=== PATIENT | female | born 1955 | race Caucasian/White ===

== ENCOUNTER 2020-09-10 11:47 | Outpatient (CLI) | payer MEDICARE, SELFPAY ==
--- NOTE | 2020-09-10 11:52 | ECG_ITS ---
Measurements Intervals Many Rate: 50 P: 57 AK: 136 QRS: 51 QRSD: 97 T: 61 QT: 373 QTc: 342 Interpretive Statements SINUS BRADYCARDIA LOW QRS VOLTAGE IN LIMB LEADS BORDERLINE R WAVE PROGRESSION, ANTERIOR LEADS BORDERLINE ECG Electronically Signed On 09-10-2020 12:17:39 CDT by Lul Rey D.O.
[2020-09-10 12:27] LABS: Basophils Absolute Auto 0.1 K/mm3 (0.0-0.1); Basophils Percent Auto 0.5 % (0.2-1.2); Eosinophils Absolute Auto 0.2 K/mm3 (0-0.3); Eosinophils Percent Auto 1.7 % (0-4.4); Hematocrit 51.9 % (37.0-47.0); Hemoglobin 17.6 g/dL (12.0-15.0); Immature Granulocyte Absolute 0.05 K/mm3 (0.00-0.031); Immature Granulocyte Percent A 0.5 % (0-0.5); Lymphocytes Absolute Auto 4.71 K/mm3 (0.9-3.2); Lymphocytes Percent Auto 42.5 % (18.3-44.2); Mean Corpuscular HGB Conc 33.9 g/dl (32-36); Mean Corpuscular Hemoglobin 33.4 pg (26-34); Mean Corpuscular Volume 98.5 fl (80-100); Mean Platelet Volume 9.3 fl (7.4-10.4); Monocytes Absolute Auto 0.8 K/mm3 (0.1-0.6); Monocytes Percent Auto 6.9 % (2.6-8.5); Neutrophils Absolute Auto 5.3 K/mm3 (1.3-6.7); Neutrophils Percent Auto 47.9 % (45.5-73.1); Platelet Count Result 226 k/mm3 (150-375); Red Blood Count 5.27 M/mm3 (4.2-5.4); Red Cell Distribution Width 12.2 % (11.5-14.5); White Blood Count 11.1 K/mm3 (4.5-10.0)
[2020-09-10 12:37] LABS: Alanine Aminotransferase 17 U/L (4-35); Albumin Level 4.4 g/dL (3.5-5.1); Alkaline Phosphatase 49 U/L (38-126); Anion Gap 5 mmol/L (8-16); Aspartate Amino Transferase 20 U/L (14-36); Bilirubin,Total 0.5 mg/dL (0.2-1.3); Blood Urea Nitrogen 21 mg/dL (7-17); Calcium 9.4 mg/dL (8.4-10.2); Carbon Dioxide 32 mmol/L (22-30); Chloride 101 mmol/L (98-107); Estimated Glomerular Filt Rate 50; Glucose 133 mg/dL (65-105); Potassium 4.7 mmol/L (3.4-5.0); Sodium 138 mmol/L (137-145)
== END 2020-09-10 11:48 | disposition home or self-care (01) ==
PROVIDERS: PCP Internal Medicine; Visit Provider Obstetrics & Gynecology
DX: N95.0 Postmenopausal bleeding (principal); I10 Essential (primary) hypertension; R00.1 Bradycardia, unspecified
CPT/HCPCS: 36415; 80053; 85025; 86850; 86900; 86901; 93005

== ENCOUNTER 2020-09-14 01:21 | Outpatient (CLI) | payer MEDICARE, SELFPAY ==
[2020-09-14 17:41] LABS: SARS-CoV-2 RNA PCR Negative
== END 2020-09-14 01:22 | disposition home or self-care (01) ==
LOC: ANHCOVIDDT 01:21
PROVIDERS: PCP Internal Medicine; Visit Provider Obstetrics & Gynecology
DX: Z01.812 Encounter for preprocedural laboratory examination (principal); Z20.828 Contact with and (suspected) exposure to other viral communicable diseases
CPT/HCPCS: 87635; C9803; U0003

== ENCOUNTER 2020-09-16 01:46 | Day surgery (SDC) | payer MEDICARE, SELFPAY ==
[2020-09-04 09:24] VITALS: BMI 41.5
[2020-09-16] VITALS (15 sets, daily range): BP systolic 104–158; BP diastolic 57–116; PULSE 50–68; RESP 12–19; TEMP 35.8–36.7; O2SAT 89–100
[2020-09-16] MEDS: LACTATED RINGERS 1,000 ML 30 ML IV CONT ×2 (08:45→13:00)
[2020-09-16] MEDS: KETOROLAC 15 MG/ML VIAL (*BKC) IV PUSH (08:47)
[2020-09-16] MEDS: ACETAMINOPHEN 500 MG TABLET 1000 MG PO (08:47)
--- NOTE | 2020-09-16 09:28 | WPDHPUPDATE1 ---
History and Physical Update Update Date/Time: 09/16/20 09:28 History and Physical has been reviewed, including an updated exam of the patient. There are NO changes in the patient's condition. Risks, benefits, and alternatives have been discussed and questions answered. Patient agrees to proceed with procedure.
--- NOTE | 2020-09-16 09:30 | WPDANESEPPF ---
Anes - Initial Pre Proc Eval Procedure: Operation Date: 09/16/20 10:00 Proposed Procedures p Total Laparoscopic Hysterectomy With Bilateral Salpingo-Oophorectomy - Oly Troncoso MD Date/Time: 09/16/20 09:30 Surgeon: Oly Troncoso MD Pre Op Diagnosis: Post Menopausal Bleeding Patient Data Age: 64 Gender: F Height: 5 ft 5 in Weight: 111.2 kg Last Vital Signs Temp 35.8 C L 09/16/20 09:04 Pulse 51 L 09/16/20 09:04 Resp 18 09/16/20 09:04 BP 135/74 09/16/20 09:04 Pulse Ox 98 09/16/20 09:04 Allergies Allergy/AdvReac Type Severity Reaction Status Date / Time No Known Allergies Allergy Verified 09/16/20 08:58 Home Medications Medication Instructions Recorded Confirmed Type albuterol sulfate 0.63 mg INHALATION TID 09/04/20 09/16/20 History albuterol sulfate 1 - 2 puff INHALATION DIRECTED 09/04/20 09/16/20 History PRN budesonide-formoterol [Symbicort] 2 puff INHALATION BID 09/04/20 09/16/20 History cholecalciferol (vitamin D3) 5,000 unit PO DAILY 09/04/20 09/16/20 History clonidine HCl 0.2 mg PO HS 09/04/20 09/16/20 History desvenlafaxine succinate 100 mg PO DAILY 09/04/20 09/16/20 History folic acid 1 mg PO DAILY 09/04/20 09/16/20 History lisinopril 20 mg PO DAILY 09/04/20 09/16/20 History lorazepam 1 mg PO TID 09/04/20 09/16/20 History meloxicam 15 mg PO HS 09/04/20 09/16/20 History progesterone micronized 200 mg PO DAILY 09/04/20 09/16/20 History simvastatin 40 mg PO DAILY 09/04/20 09/16/20 History tramadol 50 mg PO Q3H PRN 09/04/20 09/16/20 History Patient hx anesthesia problems: none Family hx anesthesia problems: none PMFSH Past Medical History Medical History Anxiety COPD (chronic obstructive pulmonary disease) Depression HTN (hypertension) Hyperlipidemia Morbid obesity COLLEEN (obstructive sleep apnea) Smoker Surgical History Surgical History (Updated 09/16/20 @ 09:31 by Oswald Springer MD) History of lumbar fusion History of total knee arthroplasty Social History Social History Smoking packs per day: 1.5 Smoking cigarettes per day: 30.0 Years smoked: 39 Smoking pack-years: 58.50 Smoking status: Current every day smoker Tobacco type: cigarettes Additional smoking assessment comments: STATES SMOKED 2 PPD FOR 15 YEARS, NOW DOWN TO 1PPD- SMOKING SINCE AGE 15 Substance use: former Substance use type: marijuana Spiritual care concerns: No Anes - Eval Final PreProcedure Day of Procedure 09/16/20 09:30 Patient weight: morbidly obese Heart: regular rate and rhythm Lungs: clear to auscultation Airway: Mallampati scale class II Neurological: alert and oriented Last oral intake: >/= 8 hours ASA classification: IV Emergent: no Anesthetic plan: proceed Anesthesia type and monitoring: general ETT and standard monitoring Informed Consent: The patient's anesthetic plan and its attendant risks including IA, prolonged intubation, PE, and and benefits were discussed with the patient/family/POA. Questions were solicited and answers provided to the satisfaction of the patient/family/POA.
[2020-09-16] MEDS: ceFAZolin 2 GM/D5W 50 ML 2 GM/50 ML BAG IVPB (10:00)
--- NOTE | 2020-09-16 12:50 | P.OP_ITS ---
Procedure Note - Detailed Date of procedure: 09/16/20 Pre-op diagnosis: Post Menopausal Bleeding Severe menorrhagia Post-op diagnosis: same Procedure performed: Total laparoscopic hysterectomy bilateral salpingo- oophorectomy Description of procedure: The patient was taken to the operating room. She was prepped and draped in the dorsal lithotomy position. A speculum was placed in the vagina. The cervix was grasped with a tenaculum. Stay sutures were placed at 3 and 9:00 a.m. of 0 Vicryl. The stay sutures were brought through the Zahra up. The CHARLOTTE manipulator was placed in the vagina with a fixed Zahra cup. The cup was then pushed up around the cervix. The sutures were tied to the handle of the CHARLOTTE manipulator. A 5 mm incision was made on the abdominal skin of the left upper quadrant using a scalpel. A 5 mm trocar was inserted into the intra-abdominal cavity under direct visualization the scope. Pneumoperitoneum was achieved. An 11 mm incision was made in the left lower quadrant of the abdomen with a scalpel. A 11 mm trocar was inserted into the intra-abdominal cavity under direct visualization the scope. A 5 mm periumbilical incision was made. A 5 mm scope was placed into the intra-abdominal cavity under direct visualization of the scope. The ureters were identified. The ureters were observed to be away from the infundibulopelvic ligaments. These infundibulopelvic ligaments were is olated, cauterized, and transected with LigaSure cautery. This was done in a bilateral fashion. The para ovarian tissue along the pelvic sidewall was cauterized and transected in a bilateral fashion using the ligature cautery. The round ligaments were cauterized and transected bilaterally with LigaSure cautery. The broad ligaments were cauterized and transected along the lateral aspects of the uterus down the level of the uterine arteries. A bladder flap was created using sharp and blunt dissection. The ureters were dissected out bilaterally down to the level of the uterine arteries. The could be visualized from the pelvic brim down the uterine arteries. Staying very close to the cervix the parametrium was cauterized transected in a stepwise fashion down to the level of the Zahra cup. The Bladder flap was moved distally over the Zahra cup using sharp and blunt dissection. The cup was visualized and a complete 360 degree papillary around the cervix. An incision was made with unipolar cautery down under the Zahra cup creating a colpotomy incision all the way around the cervix. The uterus tubes and ovaries were taken out through the vagina. A pneumo occluder was placed in the vagina. The vagina was closed with 0 V lock suture in a running fashion. The ureters were identified again and found to be intact elevated and the uterine arteries. The pelvis was irrigated with a c opious amount of antibiotic irrigation. The pneumoperitoneum was reduced. The trocars were removed. The skin was closed subcuticular 4 Monocryl covered with Dermabond. The pneumo occluder was removed from the vagina. The vagina was irrigated with Betadine. The patient tolerated the procedure well. She was taken to the recovery room in stable condition. Sponge lap and needle counts were correct x2. Anesthesia: GETA Surgeon: Oly Troncoso MD Estimated blood loss (mL): 200 Drains: No Packing: No Pathology: yes Complications: No immediate complications Condition: stable Disposition: PACU Findings: Grossly normal-appearing tubes and ovaries. Enlarged Uterus. Pronounced vascularity in all areas: Parametrium, Paracervical tissue, IP ligament
[2020-09-16] MEDS: fentaNYL CITRATE INJ (*CRX) 100 MCG/2 ML VIAL 25 MCG IV PUSH ×3 (13:48→14:04)
--- NOTE | 2020-09-16 14:16 | SUR.PHASEI ---
[id number] sbar faxed floor notified
--- NOTE | 2020-09-16 14:37 | PC.NURSE ---
This patient, Marilia Youssef, was received from PACU on 09/16/20 at 1437. Patient/family oriented to unit policies and routines
[2020-09-16] MEDS: DEXTROSE 5%/0.45% SOD CHL 1,000 ML 100 ML IV CONT (15:41)
[2020-09-16] MEDS: KETOROLAC 30 MG/ML VIAL (*BKC) IV PUSH (16:29)
[2020-09-16] MEDS: LANOLIN (LANSINOH) 7.5 GM CREAM 1 APPLIC (17:49)
[2020-09-16] MEDS: cloNIDine HCL 0.2 MG TABLET PO (21:06)
[2020-09-16] MEDS: HYDROcodone/acetaminophen (*CRX) 5-325 MG TABLET 1 TAB PO (23:22)
[2020-09-16] MEDS: IBUPROFEN 600 MG TABLET PO (23:22)
[2020-09-17] MEDS: IBUPROFEN 600 MG TABLET PO (05:26)
[2020-09-17] MEDS: HYDROcodone/acetaminophen (*CRX) 5-325 MG TABLET 1 TAB PO ×2 (05:26→09:41)
[2020-09-17 05:30] VITALS: BP 110/67; PULSE 55; RESP 18; TEMP 36.6
[2020-09-17 07:45] VITALS: BP 103/58; PULSE 51; RESP 18; TEMP 36.8; O2SAT 98
--- NOTE | 2020-09-17 08:35 | PM.GYNPNOP ---
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 Postoperative Procedures: Procedures Operation Date: 09/16/20 10:00 Actual Procedures Side Surgeon p Total Laparoscopic Hysterectomy With Bilateral Salpingo-Oophorectomy Oly Troncoso MD Postoperative day: 1 Postoperative status: doing well and other (Tollerating Regular Diet) Postoperative plan: routine post-op care and discharge Time Spent With Patient Time: Total time spent is greater than 50% in coordination of care (as documented) at patient's floor/unit and/or counseling patient: Time with patient: 15 - 25 minutes 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- PN:Subj Post-Op Subjective Date/time seen: 09/17/20 08:35 Subjective: patient reports feeling better, pain is well controlled and patient is tolerating oral intake Exam Const: General: cooperative, healthy appearing, comfortable and no acute distress Resp: Auscultation: no crackles, no rales, no rhonchi and no wheezes Cardio: Rhythm: regular rhythm Heart sounds: no click and no murmurs GI: Inspection: non-distended Auscultation: normal bowel sounds Other: Incisions - CDI Extrem: General: normal to inspection, no pedal edema and no calf tenderness 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 - PN: Obj Data Vital Signs Vital Signs: Vital Signs - 24 hr 09/16/20 09:04 09/16/20 13:00 09/16/20 13:15 Temperature 96.5 F L 96.8 F L Pulse Rate 51 L 55 L 50 L Respiratory Rate 18 12 16 Blood Pressure 135/74 158/65 H 124/77 Pulse Oximetry 98 100 100 09/16/20 13:30 09/16/20 13:45 09/16/20 14:00 Temperature Pulse Rate 53 L 55 L 54 L Respiratory Rate 14 14 12 Blood Pressure 135/73 148/71 H 146/69 H Pulse Oximetry 100 93 99 09/16/20 14:15 09/16/20 14:45 09/16/20 15:00 Temperature Pulse Rate 55 L 57 L 56 L Respiratory Rate 12 18 Blood Pressure 124/57 L 148/75 H 139/116 H Pulse Oximetry 96 96 97 09/16/20 15:15 09/16/20 15:30 09/16/20 16:00 Temperature Pulse Rate 58 L 57 L 57 L Respiratory Rate Blood Pressure 128/76 131/65 126/75 Pulse Oximetry 93 89 L 97 09/16/20 17:00 09/16/20 19:30 09/16/20 23:15 Temperature 97.8 F 98.1 F Pulse Rate 53 L 54 L 68 Respiratory Rate 19 17 Blood Pressure 104/81 125/71 140/70 Pulse Oximetry 100 97 09/17/20 05:30 Temperature 97.9 F Pulse Rate 55 L Respiratory Rate 18 Blood Pressure 110/67 Pulse Oximetry Intake/Output Intake/Output: Intake & Output 09/14/20 09/15/20 09/16/20 09/17/20 23:59 23:59 23:59 23:59 Intake Total 620 1500 Output Total 170 2650 Balance 450 -1150 Meds/Results Medications: Active Medications Generic Name Dose Route Start Last Admin Trade Name Freq PRN Reason Stop Dose Admin Hydrocodone Bitart/Acetaminophen 1 tab 09/16/20 14:32 09/17/20 05:26 Hydrocodone/Acetaminophen (*Crx) 5-325 Mg Tablet PO 1 tab Q3H PRN Administration Pain Rated 5 or Less Hydrocodone Bitart/Acetaminophen 1 tab 09/16/20 14:32 Hydrocodone/Acetaminophen (*Crx) 10-325 Mg Tablet PO Q3H PRN Pain Rated 6 or Greater Albuterol 2 puff 09/16/20 15:45 Albuterol Sulfate (*Sp) Aerosol 1 Puff INHALATION DIRECTED PRN Shortness Of Breath Artificial Tears 1 drop 09/16/20 16:38 Artificial Tears Op Soln 15 Ml Bottle EACH EYE QID PRN Dry Eye(s) Budesonide/Formoterol Fumarate 2 puff 09/16/20 20:00 09/17/20 06:46 Budesonide/Form 160-4.5 Mcg (*Sp) INHALATION Not Given Q12HRT VINCENT Clonidine HCl 0.2 mg 09/16/20 21:00 09/16/20 21:06 Clonidine Hcl 0.2 Mg Tablet PO 0.2 mg HS VINCENT Administration Ibuprofen 600 mg 09/16/20 14:32 09/17/20 05:26 Ibuprofen 600 Mg Tablet PO 600 mg Q6H PRN Administration Cramping Ketorolac Tromethamine 30 mg 09/16/20 14:32 09/16/20 16:29 Ketorolac 30 Mg/Ml Vial (*Bkc) IV PUSH 09/21/20 14:33 30 mg Q6H PRN Administration Pain Rated 4-6 Lisinopril 20 mg 09/17/20 09:00 Lisinopril 20 Mg Tablet PO DAILY VINCENT Lorazepam 1 mg 09/16/20 17:00 09/17/20 06:46 Lorazepam (*Crx) 0.5 Mg Tablet PO Not Given
--- NOTE | 2020-09-17 09:00 | PC.NURSE ---
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
[2020-09-17 09:30] VITALS: PULSE 51; RESP 18; O2SAT 98
--- NOTE | 2020-09-17 09:39 | WPDANESPN ---
Anes - Prog Note Post-Op Date/Time: 09/17/20 09:39 Cardiovascular status: normal Respiratory status: normal Airway patency: baseline Mental status: baseline Post-Op hydration status: normal Vital Signs: Last Vital Signs Temp 36.8 C 09/17/20 07:45 Pulse 51 L 09/17/20 07:45 Resp 18 09/17/20 07:45 BP 103/58 L 09/17/20 07:45 Pulse Ox 98 09/17/20 07:45 Pain Score (VAS): 0 I/O: Intake & Output 09/16/20 09/17/20 09/17/20 23:59 07:59 15:59 Intake Total 270 1500 Output Total 125 2650 Balance 145 -1150 Post-procedural complaints: none Patient Feedback: Patient satisfied with anesthetic care.
[2020-09-17] MEDS: lisinopriL 20 MG TABLET PO (09:43)
--- NOTE | 2020-09-17 10:45 | PC.NURSE ---
PT received discharge instructions per protocol and verbalized understanding of such instructions ,.
--- NOTE | 2020-09-17 10:53 | PC.NURSE ---
PT discharged to home via wheelchair unaccompanied and taken to waiting car. Follow up appts confirmed
== END 2020-09-17 10:53 | disposition home or self-care (01) ==
LOC: ANHSURGERY 07:54 → ANHOB2 15:21
PROVIDERS: PCP Internal Medicine; Visit Provider Obstetrics & Gynecology
PROC: 0UT9FZZ Resection of Uterus, Via Natural or Artificial Opening With Percutaneous Endoscopic Assistance (ICD-10-PCS; CPT 58573; principal; 2020-09-16 10:00)
DX: C54.1 Malignant neoplasm of endometrium (principal); N95.0 Postmenopausal bleeding; I10 Essential (primary) hypertension; E78.5 Hyperlipidemia, unspecified; J44.9 Chronic obstructive pulmonary disease, unspecified; G47.33 Obstructive sleep apnea (adult) (pediatric); F41.8 Other specified anxiety disorders; F17.210 Nicotine dependence, cigarettes, uncomplicated; E66.01 Morbid (severe) obesity due to excess calories; Z68.41 Body mass index [BMI] 40.0-44.9, adult
CPT/HCPCS: 58573; 88307; 99199; A9270; J0690; J1100; J1170; J1885; J2250; J2405; J2704; J2710; J3010; J7120